=== PATIENT | female | born 1945 | race Caucasian/White ===

== ENCOUNTER 2019-01-30 09:56 | Day surgery (SDC) | payer OTHER, MEDICARE ==
[2019-01-30] MEDS ORDERED: NS 500 ML IV ONE (09:59)
[2019-01-30] MEDS ORDERED: fentaNYL 100 MCG/2 ML INJ IVP ONE (09:59)
[2019-01-30] MEDS ORDERED: MIDAZOLAM 2 MG/2 ML VIAL IVP ONE (09:59)
[2019-01-30] MEDS ORDERED: BENZOCAINE UNIT DOSE SPRAY HURRICAINE MM ONE (09:59)
--- NOTE | 2019-01-30 10:37 | PDGENHP ---
History & Physical Chief Complaint: Moderate MR History of Present Illness: Moderate MR and mild TR and TTE, hx of AF, atrial flutter Relevant Physical Exam: A&Ox4, no apparent distress, lungs CTA, regular rate and rhythm, S1, S2 Cardiorespiratory Assessment: Proceed with ALIE to evaluate MR as planned for today
--- NOTE | 2019-01-30 12:04 | PDANEPAE ---
ANE Past Medical History - Cardiovascular History Hx Hypertension: No Hx Arrhythmias: Yes Hx Chest Pain: No Hx Coronary Artery / Peripheral Vascular Disease: No - Pulmonary History Hx COPD: No Hx Asthma/Reactive Airway Disease: No Hx Sleep Apnea: No - Neurologic History Hx Cerebrovascular Accident: No Hx Seizures: No - Endocrine History Hx Diabetes: No Hypothyroid: No - Renal History Hx Renal Disorders: No - Liver History Hx Hepatic Disorders: No - Neurological & Psychiatric Hx Hx Neurological and Psychiatric Disorders: No ANE Review of Systems Review of Systems: ANE Patient History - Allergies Allergies/Adverse Reactions: No Known Allergies Allergy (Unverified 01/30/19 06:43) - Anes Hx Anes Hx: no prior problems - Smoking Hx Smoking Status: Never smoked - Family Anes Hx Family Anes Hx: neg - N/A ANE Labs/Vital Signs - Vital Signs Height: 175.26 cm Weight: 56.245 kg ANE Physical Exam - Airway Mallampati Score: Class 1 Mouth exam: normal dental/mouth exam - Pulmonary Pulmonary: no respiratory distress, no rales or rhonchi, clear to auscultation - Cardiovascular Cardiovascular: regular rate and rhythym, no murmur, rub, or gallop - ASA Status ASA Status: II ANE Anesthesia Plan Anesthesia Plan: GA with mask Total IV Anesthesia: Yes
--- NOTE | 2019-01-30 12:04 | POSTANESTH ---
Post Anesthetic Evaluation Cardiovascular Status: Normal, Stable Respiratory Status: Normal, Stable Level of Consciousness/Mental Status: Can Participate in Eval Pain Control: Adequate, Prn Tx Ordered Nausea/Vomiting Control: Adequate, Prn Tx Ordered Complications Possibly Related to Anesthesia: None Noted
[2019-01-30] MEDS ORDERED: ATROPINE SULFATE 1 MG/10 ML SYR ONE (12:05)
--- NOTE | 2019-01-30 12:38 | PDTEE1 ---
ALIE Cardioversion Procedure Procedure: transesophageal echo Indications: atrial fibrillation Consent: signed and in chart Anticoagulation: eliquis Procedural Details: Sedation was provided by the anesthesia service. Pads were placed in anterior- posterior position. ALIE probe was advanced and standard images obtained. There is no evidence of left atrial or left atrial appendage thrombus. Cardioversion was not performed as the patient converted spontaneously to to normal sinus rhythm. Conclusions: successful ALIE
--- NOTE | 2019-01-30 14:34 | ECHO ---
[email or web address] [address] [address] Main: [phone] Echocardiography Examination Transesophageal Name: HANNAH MOORE MR#: [id number] Study Date: 01/30/2019 Study Time: 12:06 PM Date of : 1945 Age: 73 year(s) Height: ( ) Weight: ( ) BSA: Gender: Female Examination: ALIE Contrast: Image Quality: Adequate Rhythm: Heart Rate: BP: / Indication: Eval MV Procedure Staff Referring Physician: Rebar Bender: Chela Veag KAELYN Reading Physician: Audelia Grove MD Requesting Provider: Ordering Physician: Dioni Hernandez MD Indication: Eval MV Acute complication: None Measurements Chambers AV/MV Label Value Normal Value Label Value Normal Value LVOTd 2 cm (1.8cm - 2cm) AV PGmax 4 mmHg LVOT VTI 9.3 cm (18cm - 22cm) AV Vmax 0.94 m/s LVOT PGmean 1 mmHg MR Reg. Volume 8 ml LVOT Vmean 0.42 m/s MR Vmax 4.38 m/s MR VTI 88.3 cm MR (ERO) 0.09 cm2 MR PISA Radius 0.4 cm MR PISA Alias V. 38.5 cm/s Conclusions 1. The left ventricle is normal in size and systolic function. No regional wall motion abnormalities. 2. There is no thrombus in the left atrial appendage. 3. Negative bubble study. 4. The mitral valve is structurally normal. Mild mitral regurgitation. 5. The aortic valve is normal in structure and function. 6. Trivial tricuspid regurgitation. Unable to estimate PA systolic pressure. Patient: HANNAH MOORE Study Date: 01/30/2019 Page 1 of 2 12:06 PM Findings Left Ventricle: Left ventricle is normal in size. Normal global systolic left ventricular function. Left Atrium Appendage: Normal PW-Doppler flow pattern. Good color flow doppler in the left atrial appendage. No thrombus is identified. IAS: An agitated saline study was performed and was negative for intracardiac shunting. Mitral Valve: Mild mitral regurgitation. Aortic Valve: Aortic leaflets are structurally normal. No significant aortic valve regurgitation. There is no aortic stenosis. Tricuspid Valve: Tricuspid valve leaflets are structurally normal. Trivial tricuspid regurgitation. Pulmonic Valve: Pulmonic leaflets are structurally normal. Mild pulmonic valve regurgitation is present. Aorta: Descending aorta is normal in size. Exam Details Procedure Ordered: ALIE Procedure Status: Routine study Image Quality: Adequate Consent: Risks, alternatives of procedure explained to patient, informed consent obtained Probe Insertion: Attending software engineer Facility Location: CVC/Recovery (No Signature Object) Patient: HANNAH MOORE Study Date: 01/30/2019 Page 2 of 2 12:06 PM [id number]
== END 2019-01-30 13:56 | disposition home or self-care (01) ==
LOC: FCATH 09:56
PROVIDERS: ATTEND Internal Medicine Cardiovascular Disease
PROC: B245ZZ4 Ultrasonography of Left Heart, Transesophageal (ICD-10-PCS; principal; 2019-01-30)
DX: I48.0 Paroxysmal atrial fibrillation (principal); I48.92 Unspecified atrial flutter; I34.0 Nonrheumatic mitral (valve) insufficiency
CPT/HCPCS: J0461